=== PATIENT | male | born 1970 | race African-American/Black ===

== ENCOUNTER 2019-01-15 20:10 | Emergency (ER) | payer OTHER ==
[~2019-01-15] VITALS: Ht 180.3 cm; Wt 75.0 kg
[~2019-01-15 20:10] MED LIST: HYZAAR
[2019-01-16] MEDS ORDERED: ALBUTEROL (0.083%) 2.5MG/3ML NEB HHN NR (01:30)
[2019-01-16] MEDS ORDERED: METHYLPREDNISOLONE SOD SUCC 125 MG/2 ML VIAL IM NR (01:30)
[2019-01-16] MEDS ORDERED: IPRATROPIUM BROMIDE (0.02%) 0.5MG/2.5ML NEB HHN NR (01:30)
[2019-01-16] MEDS ORDERED: ALBUTEROL (0.5%) 2.5MG/0.5ML NEB HHN ONE (01:32)
[2019-01-16] MEDS ORDERED: IPRATROPIUM BROMIDE (0.02%) 0.5MG/2.5ML NEB ONE (01:33)
[2019-01-16 02:52] VITALS: BP 112/74
== END 2019-01-16 02:55 | disposition home or self-care (01) ==
LOC: ER 20:10
DX: J45.901 Unspecified asthma with (acute) exacerbation (principal); F18.10 Inhalant abuse, uncomplicated; I10 Essential (primary) hypertension; F12.10 Cannabis abuse, uncomplicated; Z98.1 Arthrodesis status
CPT/HCPCS: 71045; 94640; 96372; 99283; J2930; J7611; Z7610

== ENCOUNTER 2024-02-13 14:34 | Emergency (ER) | payer OTHER ==
[~2024-02-13] VITALS: Ht 180.3 cm; Wt 74.8 kg
[2024-02-13] MEDS: PREDNISONE 20MG TABLET PO ONE (16:08)
[2024-02-13 16:11] VITALS: PULSE 96; RESP 20; O2SAT 98
[2024-02-13] MEDS: IPRATROPIUM/ALBUTEROL 0.5-3(2.5)MG/3ML NEB HHN ONE (16:11)
[2024-02-13 16:18] VITALS: BP 140/88; PULSE 95; RESP 20; TEMP 36.78072; O2SAT 97
[2024-02-13] MEDS ORDERED: P50 MT (16:29)
== END 2024-02-13 17:00 | disposition home or self-care (01) ==
LOC: ER 14:34
DX: J45.901 Unspecified asthma with (acute) exacerbation (principal); I10 Essential (primary) hypertension; F12.10 Cannabis abuse, uncomplicated; Z98.890 Other specified postprocedural states
CPT/HCPCS: 71045; 94640; 93005; 99283; J7512; Z7610 ×3